=== PATIENT | female | born 1935 | race Caucasian/White ===

== ENCOUNTER 2016-08-12 23:14 | Inpatient (IN) | payer MEDICARE ==
--- NOTE | ~2016-08-12 | HP ---
History And Physical [place] [id number] [facility] [place]. [address] NAME: JHOAN ZAPATA : 33 STATUS : ADM IN PAT#: [id number] AGE: 80 ADM/REG DATE : 08/12/16 MR#: [id number] REPORT SERV DATE: 08/13/16 DICTATED BY: AUGUST ORTEGA DATE: 08/13/16 REPORT STATUS : Draft TRANSCRIBED BY: MODL DATE: 08/13/16 DATE OF ADMISSION: 08/12/2016 CHIEF COMPLAINT: Acute mental status changes. Transferred from [facility] for possible Nephrology consult and possible dialysis with abnormal labs of hyperkalemia, metabolic acidosis, and SUNITA. HISTORY OF PRESENT ILLNESS: The patient is an 80-year-old female, who presents from [facility] with past medical history of CHF with recent admission approximately two weeks ago at [facility], was doing well per family up until today, when they found the patient essentially unresponsive at home. The patient never had symptoms like this before where she was requiring more than typical type of stimulation to arouse. The patient was immediately called for emergency evaluation. Upon arrival to the ER, the patient was noted to be requiring sternal rub. Initial stroke workup was done with CT that was negative. Naloxone was administrated and the patient was noted to have blood sugar that was hypoglycemic in the 50s to 60s. Given glucose tabs, the patient started to have slight improvement in mental status. After stroke workup was negative, labs were noted to be somewhat abnormal with elevated creatinine of 1.7, potassium that was hemolyzed, but still elevated at 6.5, and bicarb at 13. The patient was also found to have a urinary tract infection and due to constellation of symptoms the patient hospitalist at outside facility recommended transfer to [facility] for possibility requiring Nephrology consult if metabolic acidosis do not improve and SUNITA begins to worsen for possible dialysis evaluation. Upon discussion here, the patient was also found to still have blood sugar of 53, but responded with two small bottles of apple juice, and D50 that was given. When discussing with family, the patient reports that she is back to her baseline and that she has been all day currently. The patient did receive one dose of Rocephin as discussed with transferring provider. The patient denies any pain. Reports that she is actually doing very well up until yesterday that she had been since her recent discharge from [facility] for heart failure. Has been fairly compliant with medications. Does have chronic debility with rheumatoid arthritis for which she is on chronic prednisone and methotrexate, and additional supportive medications. There is nothing that made symptoms worse or better, and symptoms have essentially resolved. No nausea, vomiting, diarrhea, constipation, or chest pain. Speech and confusion appear to have essentially resolved back to her baseline. The patient denies any dizziness or history of seizure activity. REVIEW OF SYSTEMS: For additional 10-point review of systems negative except that noted in the HPI. PAST MEDICAL HISTORY: 1. CHF. 2. Hypertension. 3. RA. PAST SURGICAL HISTORY: 1. Cholecystectomy. 2. Hysterectomy. History And Physical [address] [address] NAME: JHOAN ZAPATA : 33 STATUS : ADM IN [facility]#: [id number] AGE: 80 ADM/REG DATE : 08/12/16 MR#: [id number] REPORT SERV DATE: 08/13/16 DICTATED BY: AUGUST ORTEGA DATE: 08/13/16 REPORT STATUS : Draft TRANSCRIBED BY: ADDISON DATE: 08/13/16 3. Appendectomy. SOCIAL HISTORY: Currently still smoker. No alcohol or illicits. FAMILY HISTORY: Fairly healthy per patient. PHYSICAL EXAMINATION: VITAL SIGNS: Heart rate 50s, blood pressure normotensive, temperature 98, respiratory rate is 14, and O2 sat is 100% on room air. GENERAL: No acute distress. Calm, pleasant, alert, fairly oriented. NECK: Supple without JVD. HEAD: Normocephalic and atraumatic. EYES: No scleral icterus. EOMI. ENT: Mildly dry mucous membranes. Tongue midline. No JVD. RESPIRATORY: Clear to auscultation. No wheezes or rales, but does have mild basilar rhonchi. CV: Mild systolic ejection murmur, but otherwise regular. No pedal edema. Good pulses. SKIN: Warm and dry. Mild tenting. NEURO: Alert and oriented to person, place, and family at bedside and situation. Finger-to- nose intact. Does have mild right-hand tremor. Symmetrical smile. Tongue midline. Gait untested at this time. PSYCH: Appropriate mood and affect. HEME: No bleeding or bruising. ABDOMEN: Soft, nontender, and nondistended. Bowel sounds positive. : Deferred. PSYCH: Appropriate mood and affect. LABORATORY DATA: Labs obtained from outside facility. WBC count 5.2, H and H 10.3 and 34.2 with MCV of 91.4, and platelets 126. Sodium of 141, hemolyzed potassium was collected at 6.5, repeat was done, but not currently was in documentation, chloride 116, bicarb of 13, BUN and creatinine 37 and 1.7, glucose was at 69 there, currently 50s. Total protein 8. T bilirubin 0.4. AST and ALT 26 and 15. Urinalysis 500 or 3+ leuk esterase with 1+ blood, elevated wbc count and bacteria. UA noted for opioids, otherwise UDS negative. AP Chest: Cardiomegaly. No evidence of pneumonia or granulomatous disease. CT Brain: Age-related atrophy, white matter changes consistent with chronic small vessel ischemia. ALLERGIES: NO KNOWN DRUG ALLERGIES. HOME MEDICATIONS: 1. Atenolol. 2. Baclofen. History And Physical [address] [address] NAME: JHOAN ZAPATA : 33 STATUS : ADM IN PAT#: [id number] AGE: 80 ADM/REG DATE : 08/12/16 MR#: [id number] REPORT SERV DATE: 08/13/16 DICTATED BY: AUGUST ORTEGA DATE: 08/13/16 REPORT STATUS : Draft TRANSCRIBED BY: ADDISON DATE: 08/13/16 3. Os-Sohail. 4. Zyrtec. 5. Prozac. 6. Folic acid. 7. Lasix. 8. [place]. 9. Plaquenil. 10.Lisinopril. 11.Methotrexate. 12.Prilosec. 13.Prednisone alternating doses. 14.Procrit. 15.Probiotic. Additional source also reported potassium, but family reports that this may have been recently stopped and Soma was also on outside list. ASSESSMENT AND PLAN: 1. Acute encephalopathy. 2. Urinary tract infection. 3. Hypoglycemia. 4. Congestive heart failure. 5. Acute kidney injury. 6. Metabolic acidosis. 7. Hyperkalemia. 8. Tobacco use. 9. Rheumatoid arthritis. 10.Chronic steroid use. 11.Mild thrombocytopenia. PLAN: 1. For acute encephalopathy, appears improved significantly even from initial presentation with signs and symptoms. No current signs or symptoms of acute stroke. CT was negative at outside facility, but family reports back to her baseline or fairly close to her baseline. Have already started antibiotic doses at outside facility. UTI, IV fluids, and hypoglycemia is being corrected with D50 and p.o. as this is improving. Hold sedating medications including Soma medications. Treat infection and monitor clinically. 2. Urinary tract infection. Rocephin. Cultures pending. 3. Hyperglycemia. Unclear if the patient is not on any anti-hyperglycemics, has been required two doses of D50, one at outside facility and one in our facility, but this is improving. We will gently give fluids of D5 half-normal with 1 amp of bicarb. 4. Congestive heart failure. Stop KENYON inhibitor and Lasix at this time. Potassium replacement as the patient is hyperkalemic. We will monitor gently IV fluids. The patient is mildly dehydrated clinically with mild skin tenting. No JVD and dry mucous membranes. We will gentle IV fluids in the presence of UTI along with hypoglycemia with D5 half-normal with only approximately 1.5 L as tolerated. History And Physical [address] [address] NAME: JHOAN ZAPATA : 33 STATUS : ADM IN PAT#: [id number] AGE: 80 ADM/REG DATE : 08/12/16 MR#: [id number] REPORT SERV DATE: 08/13/16 DICTATED BY: AUGUST ORTEGA DATE: 08/13/16 REPORT STATUS : Draft TRANSCRIBED BY: ADDISON DATE: 08/13/16 5. Acute kidney injury. IV fluids. Stop nephrotoxins. 6. Metabolic acidosis, unclear etiology. Recheck possible multifactorial with acute encephalopathy urinary tract infection. Multiple medications. Recent treatment for CHF. We will recheck current labs pending at our facility and additionally ABG to help differentiate additional causes. We will add additionally lactate and salicylate levels. Tylenol levels with next set of labs. 7. Hyperkalemia, noted without peak T-waves on outside EKG. Stop p.o. replacement and KENYON inhibitor. Per family, I was told to stop p.o. replacements approximately one and half weeks ago as the patient was told she did have elevated potassium. Additionally this sample was noted to be hemolyzed, but will need to continue monitoring and we will monitor on telemetry. 8. Tobacco use. Nicotine patch. The patient is not interested in quitting at this time. Does have faint rhonchi, possibly end-expiratory wheeze, but we will give O2, DuoNebs as needed. 9. Rheumatoid arthritis. P.R.N.'s on low-dose steroids and methotrexate. 10.Chronic steroid use. Monitor treatment for infection. 11.Mild thrombocytopenia. Again also monitor. No signs of symptoms of mild micro petechiae and monitor as this could possibly be secondary to Soma. All questions were answered with the patient and family. Disposition pending results from treatment plan above. DDN/MODL August Ortega MD / [id number] CC: César Meredith MD
--- NOTE | ~2016-08-12 | DS ---
Discharge Summary [facility] [address] [place]. [address] NAME: JHOAN ZAPATA : 31 STATUS : DIS IN PAT#: [id number] AGE: 80 ADM/REG DATE : 08/12/16 MR#: [id number] REPORT SERV DATE: 08/16/16 DICTATED BY: IVIS MIJARES DATE: 08/15/16 REPORT STATUS : Draft TRANSCRIBED BY: MODL DATE: 08/15/16 ADMISSION DATE: 08/12/2016 DISCHARGE DATE: 08/15/2016 The patient is an 80-year-old female with a history of CHF, hypertension, and rheumatoid arthritis, who was transferred from [facility] secondary to acute mental status change and SUNITA. For further details please refer to H and P dictated by Dr. Ortega on 08/13/2016. HOSPITAL COURSE: Upon presentation to the hospital the patient was admitted under Hospitalist Service. The patient was noted to have had an episode of hypoglycemia and workup also noted positive UTI. Etiology of her acute mental status change was unclear; however, differentials were UTI versus hypoglycemia. Status post upon presentation the patient's hypoglycemia was corrected. She was started on IV Rocephin for her UTI. Status post initiation of therapy the patient quickly responded. At the time of my evaluation, her altered mental status had resolved. The patient was alert and oriented x3. The patient was kept in-house and monitored. Her creatinine upon presentation was 1.54. The patient was started on gentle IV hydration with significant improvement in her creatinine. Given her significant improvement in creatinine, there was no need for a Nephrology consult. The patient was kept in-house and monitored. Also at the time of presentation, her potassium was elevated at 5.4 status post initiation of IV fluids her potassium also normalized. The patient was also noted to have hypertension. She was not noted to be on any medication. At the time of presentation, she was started on hydrochlorothiazide with subsequent control of her blood pressure. The patient was kept in house and she progressively improved with resolution of her hypoglycemia, return of her mental status to baseline, and therapy was continued for her UTI. The patient has completed a three-day course of IV Rocephin, she now denies any symptoms. Given that the patient's presenting symptoms have resolved, the patient has returned to baseline, she is currently hemodynamically stable, the patient will be discharged home today. Plan has been discussed with the patient and family, who voiced understanding and is agreeable with this plan. DISCHARGE DIAGNOSES: 1. Encephalopathy. 2. Hypoglycemia. 3. Acute kidney injury. 4. Hyperkalemia. 5. Urinary tract infection. 6. Hypertension. 7. Neutropenia. DISCHARGE PHYSICAL EXAMINATION: VITAL SIGNS: Blood pressure 147/63 with a pulse of 72, respirations 16, O2 saturation 98% on 2 L nasal cannula, and temperature 97.5. GENERAL: The patient lying in bed, in no acute distress. Alert and oriented x3. Speaking in full sentences. HEENT: Normocephalic and atraumatic. Extraocular motors intact. Moist oral mucosa. NECK: Trachea midline and symmetric. No JVD noted. No thyromegaly present. Discharge Summary [address] [address] NAME: JHOAN ZAPATA : 33 STATUS : DIS IN PAT#: [id number] AGE: 80 ADM/REG DATE : 08/12/16 MR#: [id number] REPORT SERV DATE: 08/16/16 DICTATED BY: IVIS MIJARES DATE: 08/15/16 REPORT STATUS : Draft TRANSCRIBED BY: ADDISON DATE: 08/15/16 CHEST: Nontender to palpation. CARDIOVASCULAR: Regular rate and rhythm. S1, S2. I did not appreciate any murmurs, rubs, or gallops. LUNGS: Clear to auscultation bilaterally. No added breath sounds. The patient had a normal respiratory effort with equal chest expansion. ABDOMEN: Positive bowel sounds. Nontender. Nondistended. No masses palpated. EXTREMITIES: No cyanosis, no clubbing, no edema. NEUROLOGIC: Alert and oriented x3. No focal deficits appreciated. DISCHARGE MEDICATIONS: 1. Prozac 20 mg p.o. daily. 2. Folic acid 1 mg p.o. daily. 3. Plaquenil 200 mg p.o. twice a day. 4. Zyrtec 5 mg p.o. daily. 5. Methotrexate 12.5 mg q.7 days. 6. Omeprazole 40 mg p.o. daily. 7. Prednisone 5 mg p.o. q.48 hours. 8. Prednisone 2.5 mg p.o. q.48 hours. 9. Hydrochlorothiazide 50 mg p.o. daily. DISPOSITION: The patient will be discharged home. ACTIVITY: As tolerated. DIET: Low-sodium diet. Greater than 30 minutes were spent coordinating discharge, providing counseling, dictation of note, medication reconciliation, and writing prescription. YANN/ADDISON Ivis Mijares MD / [id number] CC: MD Loreto Rodarte MD
[2016-08-12] MEDS ORDERED: POTASSIUM (23:39)
[2016-08-12] MEDS ORDERED: LIOR10 PO (23:39)
[2016-08-12] MEDS ORDERED: NORCO1 TAB PO (23:39)
[2016-08-12] MEDS ORDERED: PROZAC PO (23:40)
[2016-08-12] MEDS ORDERED: L40 PO (23:42)
[2016-08-12] MEDS ORDERED: PLAQ200B PO (23:42)
[2016-08-12] MEDS ORDERED: MTX2.5 PO (23:45)
[2016-08-12] MEDS ORDERED: ATEN50 PO (23:46)
[2016-08-13] MEDS ORDERED: PRILOSEC40 MG PO (00:04)
[2016-08-13] MEDS ORDERED: PREDNISONE2.5 MG PO (00:05)
[2016-08-13] MEDS ORDERED: P5 PO (00:05)
[2016-08-13] MEDS ORDERED: PROCRIT IJ (00:06)
[2016-08-13] MEDS ORDERED: FOLIC PO (00:06)
[2016-08-13] MEDS ORDERED: CETIRIZINE HCL5 MG PO (00:06)
[2016-08-13] MEDS ORDERED: PROBIOTIC PO (00:07)
[2016-08-13] MEDS ORDERED: OS500+D PO (00:07)
[2016-08-13] MEDS ORDERED: PRIN10 PO (00:08)
[2016-08-13 02:16] LABS: BUN (BLOOD UREA NITROGEN) 33 MG/DL (6-23); CALCIUM, SERUM 9.3 MG/DL (8.5-10.4); CHLORIDE, SERUM 117 MMOL/L (96-112); CO2 (CARBON DIOXIDE) 19 MMOL/L (24-34); CREATININE 1.54 MG/DL (0.55-1.02); GFR AFRICAN AMERICAN 36 ML/MIN (>=60); GFR NON AFRICAN AMERICAN 31 ML/MIN (>=60); GLUCOSE, SERUM 124 MG/DL (60-99); POTASSIUM, SERUM 5.4 MMOL/L (3.5-5.3); SODIUM, SERUM 147 MMOL/L (135-148)
[2016-08-13 09:49] LABS: ASCORBIC ACID (UR NOT ORDER) NEG (NEG); BILIRUBIN, URINE NEGATIVE (NEG); KETONE, URINE NEGATIVE (NEG); LEUKOCYTE ESTERASE(NOT OR LARGE (NEG)
[2016-08-13 09:54] LABS: WBC (NOT ORDERED) (RFLEX) > 182 (0-5)
[2016-08-13 11:52] LABS: HEMATOCRIT 32.6 % (36.0-48.0); HEMOGLOBIN 10.3 g/dL (12.0-16.0); MEAN CORPUS HGB CONC 31.6 g/dL (32.0-36.0); MEAN CORPUSCULAR HEMOGLOB 28.1 pg (26.0-34.0); MEAN CORPUSCULAR VOLUME 88.8 fL (80-100); MEAN PLATELET VOLUME 11.4 fL (9.2-13.0); PLATELET COUNT 150 10/3/uL (150-400); RBC DISTRIBUTION WIDTH 16.8 % (12.0-16.0); RED CELL COUNT 3.67 10/6/uL (4.0-5.6); WHITE BLOOD CELLS 4.8 10/3/uL (4.5-10.5)
[2016-08-13 11:53] LABS: MANUAL DIFF YES %
[2016-08-13 12:07] LABS: A/G RATIO 0.8 (0.7-1.9); ALBUMIN 2.8 G/DL (3.5-5.0); ALKALINE PHOSPHATASE 87 U/L (45-117); CALCIUM, SERUM 9.2 MG/DL (8.5-10.4); CHLORIDE, SERUM 116 MMOL/L (96-112); CO2 (CARBON DIOXIDE) 21 MMOL/L (24-34); GFR AFRICAN AMERICAN 49 ML/MIN (>=60); GFR NON AFRICAN AMERICAN 42 ML/MIN (>=60); GLOBULIN 3.4 G/DL (2.5-4.1); PHOSPHORUS, SERUM 2.5 MG/DL (2.5-4.5); POTASSIUM, SERUM 5.3 MMOL/L (3.5-5.3); SALICYLATE 2.6 MG/DL (-); SGOT(AST) 22 U/L (5-40); SGPT(ALT) 16 U/L (5-65); SODIUM, SERUM 147 MMOL/L (135-148); TOTAL BILIRUBIN 0.2 MG/DL (0-1.2); TOTAL PROTEIN 6.2 G/DL (6.0-8.5)
[2016-08-13 12:08] LABS: ACETAMINOPHEN LEVEL (TYLENOL) < 2.0 MCG/ML (10.0-20.0); BUN (BLOOD UREA NITROGEN) 25 MG/DL (6-23); GLUCOSE, SERUM 91 MG/DL (60-99)
[2016-08-13 12:09] LABS: BASOPHILS 1 %; BASOPHILS ABSOLUTE (CALC) 0.05 10/3/uL (0.0-0.16); EOSINOPHILS 2 %; LYMPHOCYTES 18 %; LYMPHOCYTES ABSOLUTE (CALC) 0.86 10/3/uL (0.67-4.30); MONOCYTES 6 %; MONOCYTES ABSOLUTE (CALC) 0.29 10/3/uL (0.21-1.20); PLATELET ESTIMATE ADQ (ADEQUATE); RBC MORPHOLOGY NORM (NORMAL); SEGMENTED NEUTROPHIL (0) 73 %; TOTAL NUCLEATED CELLS 100
[2016-08-13 12:16] LABS: B NATRIURETIC PEPTIDE (BNP) 641.4 PG/ML (< 100.0)
[2016-08-13 12:52] LABS: PROCALCITONIN <0.05 ng/mL (<0.5)
[2016-08-14 06:50] LABS: BASOPHILS 0.8 %; BASOPHILS ABSOLUTE 0.03 10/3/uL (0.0-0.16); EOSINOPHILS ABSOLUTE 0.15 10/3/uL (0.0-0.53); HEMATOCRIT 29.5 % (36.0-48.0); HEMOGLOBIN 9.5 g/dL (12.0-16.0); IMMATURE GRANULOCYTES 0.3 %; IMMATURE GRANULOCYTES ABSOLUTE 0.01 10/3/uL (0.0-0.11); LYMPHOCYTES 31.5 %; LYMPHOCYTES ABSOLUTE 1.19 10/3/uL (0.67-4.30); MEAN CORPUS HGB CONC 32.2 g/dL (32.0-36.0); MEAN CORPUSCULAR HEMOGLOB 28.4 pg (26.0-34.0); MEAN CORPUSCULAR VOLUME 88.1 fL (80-100); MEAN PLATELET VOLUME 10.9 fL (9.2-13.0); MONOCYTES 7.9 %; NEUTROPHILS 55.5 %; PLATELET COUNT 125 10/3/uL (150-400); RBC DISTRIBUTION WIDTH 16.9 % (12.0-16.0); RED CELL COUNT 3.35 10/6/uL (4.0-5.6); WHITE BLOOD CELLS 3.8 10/3/uL (4.5-10.5)
[2016-08-14 06:53] LABS: MANUAL DIFF NO %
[2016-08-14 06:54] LABS: A/G RATIO 0.8 (0.7-1.9); ALBUMIN 2.5 G/DL (3.5-5.0); ALKALINE PHOSPHATASE 82 U/L (45-117); BUN (BLOOD UREA NITROGEN) 22 MG/DL (6-23); CALCIUM, SERUM 8.3 MG/DL (8.5-10.4); CHLORIDE, SERUM 112 MMOL/L (96-112); CO2 (CARBON DIOXIDE) 23 MMOL/L (24-34); CREATININE 1.13 MG/DL (0.55-1.02); GFR AFRICAN AMERICAN 52 ML/MIN (>=60); GFR NON AFRICAN AMERICAN 45 ML/MIN (>=60); GLOBULIN 3.2 G/DL (2.5-4.1); GLUCOSE, SERUM 88 MG/DL (60-99); POTASSIUM, SERUM 4.6 MMOL/L (3.5-5.3); SGOT(AST) 17 U/L (5-40); SGPT(ALT) 13 U/L (5-65); SODIUM, SERUM 143 MMOL/L (135-148); TOTAL BILIRUBIN 0.2 MG/DL (0-1.2); TOTAL PROTEIN 5.7 G/DL (6.0-8.5)
[2016-08-15 06:03] LABS: BASOPHILS 0.3 %; BASOPHILS ABSOLUTE 0.01 10/3/uL (0.0-0.16); EOSINOPHILS 4.7 %; EOSINOPHILS ABSOLUTE 0.18 10/3/uL (0.0-0.53); HEMATOCRIT 28.8 % (36.0-48.0); HEMOGLOBIN 9.3 g/dL (12.0-16.0); IMMATURE GRANULOCYTES 0.3 %; IMMATURE GRANULOCYTES ABSOLUTE 0.01 10/3/uL (0.0-0.11); LYMPHOCYTES 30.8 %; LYMPHOCYTES ABSOLUTE 1.19 10/3/uL (0.67-4.30); MANUAL DIFF NO %; MEAN CORPUS HGB CONC 32.3 g/dL (32.0-36.0); MEAN CORPUSCULAR HEMOGLOB 28.4 pg (26.0-34.0); MEAN CORPUSCULAR VOLUME 88.1 fL (80-100); MEAN PLATELET VOLUME 10.5 fL (9.2-13.0); MONOCYTES ABSOLUTE 0.31 10/3/uL (0.21-1.20); NEUTROPHILS 55.9 %; NEUTROPHILS ABSOLUTE 2.16 10/3/uL (2.02-8.40); PLATELET COUNT 116 10/3/uL (150-400); RBC DISTRIBUTION WIDTH 16.9 % (12.0-16.0); RED CELL COUNT 3.27 10/6/uL (4.0-5.6); WHITE BLOOD CELLS 3.9 10/3/uL (4.5-10.5)
[2016-08-15 06:15] LABS: A/G RATIO 0.8 (0.7-1.9); ALBUMIN 2.5 G/DL (3.5-5.0); ALKALINE PHOSPHATASE 78 U/L (45-117); BUN (BLOOD UREA NITROGEN) 18 MG/DL (6-23); CALCIUM, SERUM 8.6 MG/DL (8.5-10.4); CHLORIDE, SERUM 113 MMOL/L (96-112); CO2 (CARBON DIOXIDE) 24 MMOL/L (24-34); CREATININE 0.94 MG/DL (0.55-1.02); GFR AFRICAN AMERICAN 65 ML/MIN (>=60); GFR NON AFRICAN AMERICAN 56 ML/MIN (>=60); GLOBULIN 3.2 G/DL (2.5-4.1); GLUCOSE, SERUM 75 MG/DL (60-99); POTASSIUM, SERUM 4.6 MMOL/L (3.5-5.3); SGOT(AST) 15 U/L (5-40); SGPT(ALT) 10 U/L (5-65); SODIUM, SERUM 144 MMOL/L (135-148); TOTAL BILIRUBIN 0.2 MG/DL (0-1.2); TOTAL PROTEIN 5.7 G/DL (6.0-8.5)
[2016-08-15] MEDS ORDERED: HYDROCHLOROT50 MG PO (11:34)
[2016-08-15] MEDS ORDERED: HABIT21 TOP (11:38)
== END 2016-08-15 15:33 | disposition home health service (06) | DRG 682 ==
LOC: 7NO 23:14
PROVIDERS: Hospitalist; Student in an Organized Health Care Education/Training Program
DX: N17.9 Acute kidney failure, unspecified (principal); G93.40 Encephalopathy, unspecified; E87.2 Acidosis; E87.5 Hyperkalemia; D69.6 Thrombocytopenia, unspecified; I50.9 Heart failure, unspecified; I11.0 Hypertensive heart disease with heart failure; N39.0 Urinary tract infection, site not specified; E86.0 Dehydration; M06.9 Rheumatoid arthritis, unspecified; Z79.52 Long term (current) use of systemic steroids; E16.2 Hypoglycemia, unspecified
CPT/HCPCS: 71010; 80048; 80053; 81001; 82140; 82962; 83605; 83735; 83880; 84100; 84145; 85025; 87040; 87077; 87086; 87186; A9270-GY; G0480; J0360; J3475; J8610